=== PATIENT | male | born 1980 | race Caucasian/White ===

== ENCOUNTER 2020-05-10 10:19 | Emergency (ER) | payer SELFPAY ==
--- NOTE | 2020-05-10 10:31 | NUR ---
NOT IN TRIAGE AREA WHEN CALLED.
--- NOTE | 2020-05-10 10:56 | NUR ---
PT STILL NOT IN WAITING ROOM WHEN CALLED.
== END 2020-05-10 10:59 | disposition left against medical advice (07) ==
LOC: ER 10:19
DX: Z53.21 Procedure and treatment not carried out due to patient leaving prior to being seen by health care provider (principal)